=== PATIENT | male | born 1940 | race Caucasian/White ===

== ENCOUNTER 2022-06-01 13:20 | Inpatient (IN) | payer MEDICARE, BC ==
[~2022-06-01] VITALS: Ht 167.6 cm; Wt 68.5 kg
--- NOTE | 2022-06-01 15:55 | NUR ---
STEAM TRAP MAN NOTES Receuved pt from [facility]. No complaints of pain or discomfort at this time. Pt is on RA and tolerating it well. IV access on RAC 20G patent and intact. HOB elevated to pts comfort. Siderails up at all times. Will continue to monitor.
[2022-06-01 16:00] VITALS: BP 132/76
[2022-06-01] MEDS ORDERED: MAG HYDROX/AL HYDROX/SIMETH 30 ML UDC PO PRN (18:00)
[2022-06-01] MEDS ORDERED: DEXTROSE 50%-WATER 50 ML DISP.SYRIN IV PRN (18:00)
[2022-06-01] MEDS ORDERED: ZOLPIDEM TARTRATE 5 MG TABLET PO PRN (18:00)
[2022-06-01] MEDS ORDERED: HYDROCODONE/APAP 5/325MG TABLET PO PRN (18:00)
[2022-06-01] MEDS ORDERED: hydrALAZINE HCL IV 20 MG VIAL IV PRN (18:00)
[2022-06-01] MEDS: ENOXAPARIN SODIUM 40 MG/0.4 ML DISP.SYRIN SQ SCH (18:16)
[2022-06-01 18:33] LABS: THYROID STIMULATING HORMONE 1.344 uIU/mL (0.358-3.74)
--- NOTE | 2022-06-01 19:40 | NUR ---
SUPERVISOR HARVESTING OPENING NOTE RECEIVED PATIENT IN BED AWAKE, RESTING, PT A/O X4, ABLE TO MAKE NEEDS KNOWN, ON RA, TOLERATING WELL, O2 SAT 99%. NO SOB, NO RESPIRATORY DISTRESS NOTED. PT ON TELE MONITOR READING SR. DENIES PAIN/DISCOMFORT AT THIS TIME. IV ACCESS AT RAC #20G INTACT AND PATENT, NO IVF RUNNING AT THIS TIME. SAFETY MEASURES IN PLACE. BED LOCKED IN LOW POSITION, CALL LIGHT WITHIN REACH, SR UP X2. WILL CONTINUE TO MONITOR THROUGHOUT THE SHIFT.
[2022-06-01 19:46] LABS: BILIRUBIN,URINE NEGATIVE (NEGATIVE); COLOR,URINE YELLOW (YELLOW); LEUKOCYTE ESTERASE ,URINE NEGATIVE (NEGATIVE); NITRITE, URINE NEGATIVE (NEGATIVE); PROTEIN,URINE NEGATIVE (NEGATIVE); UGLUCOSE NEGATIVE (NEGATIVE); UROBILINOGEN,URINE 0.2 EU/dL (0.2)
[2022-06-01 20:00] VITALS: BP 115/59
[2022-06-01 20:19] LABS: BACTERIA,URINE None seen /HPF (None Seen); RBC,URINE 0-2 /HPF (0-2); SQUAMOUS EPITHELIAL CELL,UR 0-2 /HPF (None Seen); WBC,URINE 0-2 /HPF (0-3)
[2022-06-01] MEDS: IV NS 0.9% 1,000 ML IV PRN (20:42)
[2022-06-01] MEDS: SIMVASTATIN 20 MG TABLET PO SCH (21:04)
[2022-06-01] MEDS: BLOOD SUGAR DIAGNOSTIC 1 EACH STRIP IN SCH (21:05)
[2022-06-01] MEDS: INSULIN REGULAR, HUMAN 100 UNIT/ML 3 ML VIAL SQ PRN (21:24)
[2022-06-02] VITALS (7 sets, daily range): BP systolic 120–144; BP diastolic 63–74
--- NOTE | 2022-06-02 05:51 | NUR ---
SCALES INSPECTOR NOTIFIED VIA TEXT
[2022-06-02 06:08] LABS: CHOLESTEROL 177 mg/dL (<200); HDL CHOLESTEROL 89 mg/dL (40-60); LDL 85 mg/dL (0-99); TRIGLYCERIDES 52 mg/dL (30-150)
[2022-06-02 06:11] LABS: BASOPHILS % (AUTO) 0.7 % (0.0-2.0); EOSINOPHILS % (AUTO) 0.9 % (0.0-6.0); HEMATOCRIT 35 % (39-51); HEMOGLOBIN 11.9 g/dL (13.5-17.5); LYMPHOCYTES # (AUTO) 1.3 K/uL (0.8-4.8); LYMPHOCYTES % (AUTO) 23.9 % (20.0-44.0); MEAN CORPUSCULAR HGB CONC 34 g/dl (31.0-36.0); MEAN CORPUSCULAR VOLUME 92 fL (80-96); MONOCYTES # (AUTO) 0.6 K/uL (0.1-1.30); MONOCYTES % (AUTO) 10.3 % (2.0-12.0); NEUTROPHILS # (AUTO) 3.6 K/uL (1.8-8.9); NEUTROPHILS % (AUTO) 64.2 % (43.0-81.0); PLATELET COUNT (AUTO) 266 K/uL (150-450); RED BLOOD CELL COUNT(AUTO) 3.79 MIL/uL (4.5-6.0); WHITE BLOOD COUNT (AUTO) 5.6 K/uL (4.3-11.0)
[2022-06-02 06:18] LABS: CALCIUM, SERUM 8.1 mg/dL (8.5-10.1); CARBON DIOXIDE 26 mmol/L (21-32); CHLORIDE 103 mmol/L (98-107); CREATININE 0.7 mg/dL (0.6-1.3); GLUCOSE 105 mg/dL (74-106); POTASSIUM 3.8 mmol/L (3.5-5.1); SODIUM SERUM 134 mmol/L (136-145); UREA NITROGEN, BLOOD 7 mg/dL (7-18)
--- NOTE | 2022-06-02 06:40 | NUR ---
RN NOTE NOTIFIED CYBER INCIDENT RESPONDER MD ABOUT PT BLOOD CULTURE CAME OUT GRAM (+) COCCI IN CLUSTER. AWAITING RESPONSE. WILL CONT TO MONITOR.
--- NOTE | 2022-06-02 06:55 | NUR ---
PEST LOCATOR CLOSING NOTE PATIENT REMAINS IN BED RESTING, PT A/O X4, ABLE TO MAKE NEEDS KNOWN, ON O2 VIA NC AT 2LPM, TOLERATING WELL, O2 SAT 97%. NO SOB, NO RESPIRATORY DISTRESS NOTED. PT ON TELE MONITOR READING SB WITH FREQUENT PVC'S. DENIES PAIN/DISCOMFORT AT THIS TIME. IV ACCESS AT RAC #20G AND R HAND #22G INTACT AND PATENT, RUNNING NS AT 75 ML/HR. ALL DUE MEDS GIVEN, KEPT DRY AND CLEAN, SAFETY MEASURES IN PLACE. BED LOCKED IN LOW POSITION, CALL LIGHT WITHIN REACH, SR UP X2. WILL ENDORSE TO AM SHIFT NURSE FOR CONTINUITY OF CARE
--- NOTE | 2022-06-02 07:00 | NUR ---
RN NOTE RECEIVED PATIENT IN BED RESTING ALERT ORIENTED X4 VERBALLY RESPONSIVE ON 2L OXYGEN VIA NASAL CANNULA O2:97% V ACCESS AT RAC #20G AND R HAND #22G INTACT AND PATENT,IV NS HYDRATION RUNNING 75CC/HR, SAFETY MEASURE IMPLEMENT BED IN LOW POSITION AND LOCKED,CALL LIGHT WITHIN REACH,CONTINUE TO MONITOR.
[2022-06-02] MEDS: BLOOD SUGAR DIAGNOSTIC 1 EACH STRIP IN SCH ×4 (07:25→22:17)
[2022-06-02] MEDS: PANTOPRAZOLE 40 MG TABLET.DR PO SCH (07:35)
[2022-06-02] MEDS: ASPIRIN EC 325 MG TABLET.DR PO SCH (08:40)
[2022-06-02] MEDS ORDERED: ASPIRIN EC 325 MG TABLET.DR PO SCH (09:00)
[2022-06-02] MEDS ORDERED: GABA-532 PO (11:44)
[2022-06-02] MEDS ORDERED: TRAZ-257 PO (11:44)
[2022-06-02] MEDS ORDERED: ROPI0.5T4 PO (11:44)
[2022-06-02] MEDS ORDERED: PANT40TA49 PO (11:44)
[2022-06-02] MEDS ORDERED: METO25TA4 PO (11:44)
[2022-06-02] MEDS ORDERED: RAME8TAB15 PO (11:44)
[2022-06-02] MEDS ORDERED: TRAZODONE 50 MG TABLET PO PRN (16:30)
--- NOTE | 2022-06-02 17:15 | NUR ---
RN NOTE REPORT GIVEN TO ANTON LAGUNAS FOR CONTINUATION OF CARE Addendum: 06/02/22 at 1745 by CONSTANTINE CELESTIN RN REPORT GIVEN TO RAUL LAGUNAS FOR CONTINUATION OF CARE.
[2022-06-02] MEDS: IV NS 0.9% 1,000 ML IV PRN (17:30)
[2022-06-02] MEDS ORDERED: METOPROLOL SUCCINATE 25 MG TAB.SR.24H PO SCH (18:00)
[2022-06-02] MEDS: GABAPENTIN 100 MG CAPSULE PO SCH (18:07)
--- NOTE | 2022-06-02 18:47 | NUR ---
Wilson Addison NP informed resident HR is 51-57. BP 102/67, Toprol XL 25 m held.
--- NOTE | 2022-06-02 19:00 | NUR ---
DIE FORGER CLOSING NOTE: AWAKE AND ALERT X3. UNLABORED BREATHING SATING AT 99% AT ROOM AIR. ON VP SALES SINUS FLOWER 57. IV ON RIGHT AC AND RIGHT HAND PATENT, NO S/S OF COMPLICATIONS. IVF NS 75 ML/HR. HOB ELEVATED. BILATERAL HALF SIDE RAILS UP X2. BED IS LOCKED, IN LOW POSITION, EXIT ALARM ON. CALL LIGHT IN REACH. DENIES PAIN OR DISCOMFORT.
--- NOTE | 2022-06-02 19:15 | NUR ---
PREVENTIVE MEDICINE PHYSICIAN OPENING NOTE RECEIVED PATIENT IN BED, AAO X4, ON ROOM AIR SATURATING 99%, NO SOB/DISTRESS NOTED. ON TELE MONITOR SB HR 57. IV ACCESS ON RIGHT AC AND RIGHT HAND INFUSING NS AT 75 ML/HR. SAFETY MEASURES IN PLACE: BED LOCKED AND IN LOWEST POSITION, CALL LIGHT WITHIN REACH, SIDE RAILS UP X3 AND PADDED.
[2022-06-02] MEDS: ENOXAPARIN SODIUM 40 MG/0.4 ML DISP.SYRIN SQ SCH (20:24)
[2022-06-02] MEDS ORDERED: LEVETIRACETAM (500MG) 1,000 MG in IV NS 0.9% 100 ML IV ONE (21:00)
[2022-06-02] MEDS: SIMVASTATIN 20 MG TABLET PO SCH (21:39)
[2022-06-02] MEDS ORDERED: ropiniROLE 0.5 MG TABLET PO SCH (22:00)
[2022-06-02] MEDS: INSULIN REGULAR, HUMAN 100 UNIT/ML 3 ML VIAL SQ PRN (22:17)
[2022-06-03] VITALS (7 sets, daily range): BP systolic 119–143; BP diastolic 51–89
--- NOTE | 2022-06-03 07:00 | NUR ---
SENIOR ACTUARIAL ANALYST CLOSING NOTE PATIENT IN BED, AAO X4, O2 VIA NC AT 2L, O2 SAT 99%, NO SOB/DISTRESS NOTED. ON TELE MONITOR SB HR 59. IV ACCESS ON RIGHT AC AND RIGHT HAND INFUSING NS AT 75 ML/HR. ALL DUE MEDS WERE GIVEN AND NEEDS ATTENDED. SAFETY MEASURES MAINTAINED: BED LOCKED AND IN LOWEST POSITION, CALL LIGHT WITHIN REACH, SIDE RAILS UP X3 AND PADDED. WILL ENDORSE TO ONCOMING NURSE FOR JT.
--- NOTE | 2022-06-03 07:20 | NUR ---
RN NOTE RECEIVED PATIENT IN BED RESTING ALERT ORIENTED X3-4 ON 2L OXYGEN VIA NASAL CANNULA,O2:97% IV SITE IS ON RIGHT AC AND RIGHT HAND INTACT PATENT ON IV HYDRATION NS 75CC/HR,CONTIENT BOWEL/BLADDER,SAFETY MEASURE IMPLEMENT BED IN LOW POSITION AND LOCKED,CALL LIGHT WITHIN REACH,CONTINUE TO MONITOR.
[2022-06-03] MEDS: BLOOD SUGAR DIAGNOSTIC 1 EACH STRIP IN SCH ×2 (07:31→12:02)
[2022-06-03] MEDS: PANTOPRAZOLE 40 MG TABLET.DR PO SCH (07:34)
[2022-06-03 08:14] LABS: CALCIUM, SERUM 8.4 mg/dL (8.5-10.1); CARBON DIOXIDE 24 mmol/L (21-32); CHLORIDE 106 mmol/L (98-107); CREATININE 0.5 mg/dL (0.6-1.3); GLUCOSE 106 mg/dL (74-106); POTASSIUM 3.8 mmol/L (3.5-5.1); SODIUM SERUM 138 mmol/L (136-145); UREA NITROGEN, BLOOD 5 mg/dL (7-18)
[2022-06-03] MEDS: ASPIRIN EC 325 MG TABLET.DR PO SCH (08:14)
[2022-06-03] MEDS: GABAPENTIN 100 MG CAPSULE PO SCH (08:14)
[2022-06-03] MEDS ORDERED: LEVETIRACETAM (250 MG) 250 MG TABLET PO SCH (09:00)
[2022-06-03] MEDS ORDERED: LEVE500T9 PO (11:23)
[2022-06-03] MEDS ORDERED: ASPI-1169 PO (11:23)
[2022-06-03] MEDS ORDERED: SIMV40TA2 PO (11:23)
--- NOTE | 2022-06-03 15:58 | NUR ---
RIGHT OF WAY MANAGER NOTE PATIENT DISCHARGE HOME IN STABLE CONDITION WITH HOME HEALTH,ALERT ORIENTED X3-4 VERBALLY RESPONSIVE ON ROOM AIR O2:97%,IV SIGNED REMOVED NO BLEEDING NOTED,DRESSING INTACT,HE SIGNED BELONGING PAPERS AND DISCHARGE,EDUCATION PROVIDED REGARDING MEDS AND FOLLOWING UP APPOINTMENT HE VERBALIZED UNDERSTOOD TEACHING,HE LEFT HOSPITAL IN STABLE CONDITION WITH HIS FRIEND BY PRIVATE CAR.
== END 2022-06-03 15:51 | disposition home health service (06) | DRG 101 ==
LOC: TELE1 15:33
PROVIDERS: ADMIT Nurse Practitioner Acute Care; ATTEND Nurse Practitioner Acute Care
DX: R56.9 Unspecified convulsions (principal); G45.9 Transient cerebral ischemic attack, unspecified; E87.1 Hypo-osmolality and hyponatremia; G93.40 Encephalopathy, unspecified; I67.82 Cerebral ischemia; E86.1 Hypovolemia; G25.81 Restless legs syndrome; G47.00 Insomnia, unspecified; F12.10 Cannabis abuse, uncomplicated; Z98.62 Peripheral vascular angioplasty status; M79.2 Neuralgia and neuritis, unspecified; G31.89 Other specified degenerative diseases of nervous system; I10 Essential (primary) hypertension; D63.8 Anemia in other chronic diseases classified elsewhere; Z79.899 Other long term (current) drug therapy; I49.9 Cardiac arrhythmia, unspecified
CPT/HCPCS: 36415; 70544-TC; 70547-TC; 70551-TC; 80048-TC; 80061-TC; 81001; 82962-TC; 83880; 84443-TC; 85025-TC; 85652-TC; 85730-TC; 92507-TC; 92521; 92526; 92611-TC; 93307-TC; 93880-TC; 95819-TC; 97116-TC; 97530-TC; G0378; J1650; J1815; J1953; J7030